=== PATIENT | male | born 1995 | race Caucasian/White ===

== ENCOUNTER 2021-01-14 12:01 | Inpatient (IN) ==
[2021-01-14] MEDS ORDERED: Al Hydrox/Mg Hydrox/Simet LIQ 30 ML UDC PO PRN (12:51)
[2021-01-14 14:32] LABS: ABS Eosinophils 0.1 10^3/ul (0-0.6); ABS Lymphocytes 1.6 10^3/ul (1.0-4.8); ABS Monocytes 0.4 10^3/ul (0-0.8); ABS Neutrophils 3.4 10^3/ul (1.5-7.7); Eosinophil % 2.4 %; Hematocrit 40 % (42-52); Hemoglobin 13.7 g/dL (14.0-18.0); Mean Corpuscular HGB Conc 35 g/dL (31-36); Mean Corpuscular Hemoglobin 31 pg (27-31); Mean Corpuscular Volume 89 fL (80-94); Mean Platelet Volume 7.8 fL (7.4-10.4); Platelet Count 162 10^3/uL (150-450); Red Blood Count 4.44 10^6 /uL (4.18-5.48); Red Cell Distribution Width 12 % (10-15); White Blood Count 5.5 10^3/uL (3.5-10.8)
[2021-01-14 15:03] LABS: ALT 17 U/L (7-52); AST 20 U/L (13-39); Albumin 4.5 g/dL (3.2-5.2); Alkaline Phosphatase 57 U/L (34-104); Anion Gap 5 mmol/L (2-11); BUN/Creatinine Ratio 12.6 (8-20); Blood Urea Nitrogen 11 mg/dL (6-24); CO2 Carbon Dioxide 31 mmol/L (22-32); Calcium 9.3 mg/dL (8.6-10.3); Chloride 103 mmol/L (101-111); EGFR African American 126.4 (>60); EGFR Non-African American 104.5 (>60); Globulin 2.2 g/dL (2-4); Glucose 82 mg/dL (70-100); Sodium 139 mmol/L (135-145); Total Protein 6.7 g/dL (6.4-8.9)
[2021-01-14 15:29] LABS: Acetaminophen < 15 mcg/mL; Alcohol, S < 10 mg/dL (<10); Salicylate < 2.50 mg/dL (<30)
[2021-01-14 15:37] LABS: Urine Appearance Clear; Urine Bilirubin Negative (Negative); Urine Blood Negative (Negative); Urine Color Yellow; Urine Glucose Negative (Negative); Urine Ketones Negative (Negative); Urine Nitrite Negative (Negative); Urine Protein Negative (Negative); Urine Specific Gravity 1.019 (1.010-1.030); Urine Urobilinogen Positive (Negative)
[2021-01-14] MEDS ORDERED: Nicotine PATCH 21 MG/24 HR PATCH TRANSDERM ONE (15:42)
[2021-01-14 15:43] LABS: TSH Ultra Thyroid Stim Horm 0.94 mcIU/mL (0.34-5.60)
[2021-01-14] MEDS: Vitamin THERAPEUTIC TAB PO SCH (16:00)
[2021-01-14 16:24] LABS: Urine Benzodiazepine Screen Presumptive Positive (None Detect); Urine Cannabinoids Screen Presumptive Positive (None Detect); Urine Opiates Screen None Detected (None Detect)
[2021-01-14] MEDS: Amphetamine MIXED SALT 10mgTAB PO SCH ×2 (17:34→17:42)
[2021-01-14] MEDS ORDERED: Buprenorp/Nalox 8-2 MG SL TAB PO ONE (22:00)
[2021-01-15] MEDS: Vitamin THERAPEUTIC TAB PO SCH (08:09)
[2021-01-15] MEDS: Amphetamine MIXED SALT 10mgTAB PO SCH ×2 (08:10→13:45)
[2021-01-15] MEDS ORDERED: Buprenorp/Nalox 8-2 MG SL TAB PO SCH (09:00)
[2021-01-15] MEDS: Nicotine PATCH 14 MG/24 HR PATCH TRANSDERM SCH (13:46)
[2021-01-15] MEDS: Nicotine GUM 4MG FRUIT FLAVOR PO PRN (16:40)
[2021-01-16] MEDS: Nicotine PATCH 14 MG/24 HR PATCH TRANSDERM SCH (07:28)
[2021-01-16 08:15] VITALS: BP 134/76
[2021-01-16] MEDS: Amphetamine MIXED SALT 10mgTAB PO SCH (08:17)
[2021-01-16] MEDS: Vitamin THERAPEUTIC TAB PO SCH (08:17)
[2021-01-16] MEDS: Nicotine GUM 4MG FRUIT FLAVOR PO PRN (08:20)
[2021-01-16] MEDS ORDERED: Buprenorp/Nalox 4-1 MG FILM SL FILM SCH (09:00)
== END 2021-01-16 11:40 | disposition home or self-care (01) | DRG 751 ==
LOC: ED 12:01 → BSU 12:52 → ED 16:36
PROVIDERS: ADMIT Psychiatry & Neurology Psychiatry; ATTEND Psychiatry & Neurology Psychiatry